=== PATIENT | female | born 1990 | race Two or more races ===

== ENCOUNTER 2017-08-10 01:06 | Emergency (ER) | payer OTHER ==
[~2017-08-10] VITALS: Ht 165.1 cm; Wt 63.5 kg
[2017-08-10] MEDS ORDERED: BACTRIM 400-801 EACH PO (04:11)
== END 2017-08-10 04:30 | disposition home or self-care (01) ==
LOC: ER 01:06
DX: N39.0 Urinary tract infection, site not specified (principal); R50.9 Fever, unspecified

== ENCOUNTER 2019-02-28 12:39 | Inpatient (IN) | payer OTHER ==
[~2019-02-28] VITALS: Ht 165.1 cm; Wt 80.7 kg
[~2019-02-28 12:39] MED LIST: BACTRIM 400-801 EACH PO
[2019-03-17] MEDS ORDERED: PRENATAL CAPLE1 EAC1 PO (11:24)
== END 2019-03-19 15:00 | disposition home or self-care (01) | DRG 807 ==
LOC: LDR 03-17 04:59 → OB/GYN 03-17 15:56
PROVIDERS: ADMIT Obstetrics & Gynecology
PROC: 10E0XZZ Delivery of Products of Conception, External Approach (ICD-10-PCS; principal; 2019-03-17)
PROC: 0KQM0ZZ Repair Perineum Muscle, Open Approach (ICD-10-PCS; 2019-03-17)
PROC: 3E033VJ Introduction of Other Hormone into Peripheral Vein, Percutaneous Approach (ICD-10-PCS; 2019-03-17)
PROC: 10907ZC Drainage of Amniotic Fluid, Therapeutic from Products of Conception, Via Natural or Artificial Opening (ICD-10-PCS; 2019-03-17)
PROC: 4A1HXCZ Monitoring of Products of Conception, Cardiac Rate, External Approach (ICD-10-PCS; 2019-03-17)
DX: O70.1 Second degree perineal laceration during delivery (principal); Z37.0 Single live birth; Z3A.39 39 weeks gestation of pregnancy